=== PATIENT | female | born 1935 | race African-American/Black ===

== ENCOUNTER 2018-07-07 12:05 | Emergency (ER) | payer BC ==
[~2018-07-07] VITALS: Ht 152.4 cm; Wt 54.4 kg
[2018-07-07 16:07] LABS: Basophils # (auto) 0 uL; Basophils % (auto) 0.2 % (0.0-2.0); Eosinophils # (auto) 0 uL; Eosinophils % (auto) 0.1 % (0.0-7.0); Hematocrit 36.8 % (36.0-46.0); Hemoglobin 12.2 g/dL (12.2-16.2); Lymphocytes # (auto) 1.3 uL; Lymphocytes % (auto) 18.7 % (10.0-50.0); Mean Corpuscular Hemoglobin 29.4 pg (28.0-32.0); Mean Corpuscular Hgb Conc. 33.1 g/dL (32.0-36.0); Monocytes # (auto) 0.4 uL; Monocytes % (auto) 6.6 % (0.0-12.0); Neutrophils % (auto) 74.4 % (37.0-80.0); Nucleated Red Blood Cells % 0.1 %; Platelet Count (auto) 178 10^3/uL (140-450); Red Blood Cells 4.14 10^6/uL (4.0-5.20); Red Cell Distribution Width 15.9 % (11.8-14.3); White Blood Cell 6.7 10^3/uL (4.4-10.8)
[2018-07-07 16:25] LABS: Alanine Aminotransferase 10 U/L (13-56); Albumin 2.9 g/dL (3.4-5.0); Anion Gap 8 (5-15); Aspartate Aminotransferase 13 U/L (15-37); BUN/Creatinine Ratio 11.7; Blood Urea Nitrogen 12 mg/dL (7-18); Carbon Dioxide 26 mmol/L (21-32); Chloride 105 mmol/L (98-107); GFR African American 66 mL/min; GFR Non-African American 54 mL/min; Glucose 102 mg/dL (74-106); Potassium 4.2 mmol/L (3.5-5.1); Sodium 139 mmol/L (136-145)
[2018-07-07 16:27] LABS: Alkaline Phosphatase 80 U/L (45-117); Bilirubin, Total 0.3 mg/dL (0.2-1.0); Total Protein 6.8 g/dL (6.4-8.2)
[2018-07-07 17:35] LABS: INR 1.03 (0.9-1.15); Partial Thromboplastin Time 27.1 sec (23.78-33.04)
[2018-07-07 17:58] VITALS: BP 107/74
== END 2018-07-07 19:22 | disposition home or self-care (01) ==
LOC: EDBD 12:05 → ER 12:14
DX: S09.93XA Unspecified injury of face, initial encounter (principal); F03.90 Unspecified dementia, unspecified severity, without behavioral disturbance, psychotic disturbance, mood disturbance, and anxiety; I10 Essential (primary) hypertension; Z88.0 Allergy status to penicillin; W19.XXXA Unspecified fall, initial encounter; Y93.89 Activity, other specified; Y99.8 Other external cause status; Y92.89 Other specified places as the place of occurrence of the external cause
CPT/HCPCS: 36415; 70450; 70486; 71045; 80053; 83880; 84484; 85025; 85610; 85730